=== PATIENT | female | born 1960 | race Caucasian/White ===

== ENCOUNTER → 2016-09-15 | Outpatient (CLI) | payer BC, OTHER | END | disposition home or self-care (01) | LOC: C.RDSM 07:18 | PROVIDERS: ATTEND Physical Medicine & Rehabilitation Sports Medicine | DX: M17.32 Unilateral post-traumatic osteoarthritis, left knee (principal); M25.562 Pain in left knee ==

== ENCOUNTER → 2017-09-14 | Outpatient (CLI) | payer OTHER | END | disposition home or self-care (01) | LOC: C.RDSM 07:39 | PROVIDERS: ATTEND Physical Medicine & Rehabilitation Sports Medicine | DX: M17.32 Unilateral post-traumatic osteoarthritis, left knee (principal) ==